=== PATIENT | female | born 1980 | race Two or more races ===

== ENCOUNTER 2017-04-10 11:32 | Outpatient (CLI) | payer OTHER ==
[~2017-04-10 11:32] MED LIST: ZOFRAN8 MG
[2017-04-10] MEDS ORDERED: PRENATAL 19 TA1 EACH PO (15:56)
== END 2017-04-10 16:28 | disposition still patient (30) ==
LOC: NST 11:32
DX: Z34.83 Encounter for supervision of other normal pregnancy, third trimester (principal)

== ENCOUNTER 2017-04-10 12:25 | Inpatient (IN) | payer OTHER ==
[~2017-04-10] VITALS: Ht 149.9 cm; Wt 2.7 kg
[2017-04-10] MEDS ORDERED: PRENATAL 19 TA1 EACH PO (15:56)
== END 2017-04-13 11:31 | disposition home or self-care (01) | DRG 765 ==
LOC: OB/GYN 12:25 → LDR 12:25 → OB/GYN 17:50
PROVIDERS: Obstetrics & Gynecology
PROC: 0UT70ZZ Resection of Bilateral Fallopian Tubes, Open Approach (ICD-10-PCS; 2017-04-10)
PROC: 4A1HXCZ Monitoring of Products of Conception, Cardiac Rate, External Approach (ICD-10-PCS; 2017-04-10)
PROC: 4A033R1 Measurement of Arterial Saturation, Peripheral, Percutaneous Approach (ICD-10-PCS; 2017-04-10)
PROC: 10D00Z1 Extraction of Products of Conception, Low, Open Approach (ICD-10-PCS; principal; 2017-04-10 15:15)
DX: O34.211 Maternal care for low transverse scar from previous cesarean delivery (principal); O60.14X0 Preterm labor third trimester with preterm delivery third trimester, not applicable or unspecified; Z37.0 Single live birth; Z64.1 Problems related to multiparity; Z30.2 Encounter for sterilization; Z3A.36 36 weeks gestation of pregnancy